=== PATIENT | female | born 1995 | race Caucasian/White ===

== ENCOUNTER 2017-06-19 00:45 | Emergency (ER) | payer MEDICAID, OTHER ==
[~2017-06-19] VITALS: Ht 162.6 cm; Wt 95.0 kg
[2017-06-19 01:31] VITALS: BP 119/80; PULSE 122; RESP 22; TEMP 100.3
--- NOTE | 2017-06-19 02:19 | RADRPT ---
EXAM DATE/TIME: 06/19/2017 01:47 [place] COMPARISON: No previous studies available for comparison. INDICATIONS : Chest pain. Shortness of breath. Patient states she was in the sun too long today. MEDICAL HISTORY : None. SURGICAL HISTORY : None. ENCOUNTER: Initial ACUITY: 1 day PAIN SCORE: 3/10 LOCATION: Bilateral chest FINDINGS: PA and lateral views of the chest demonstrate the lungs to be symmetrically aerated without evidence of mass, infiltrate or effusion. The cardiomediastinal contours are unremarkable. Osseous structure s are intact. CONCLUSION: No acute disease. Benny Alva MD on June 19, 2017 at 2:17 Board Certified Radiologist. This report was verified electronically.
[2017-06-19 02:53] LABS: BICARBONATE 25.4 MEQ/L (21.0-32.0); BLOOD UREA NITROGEN 9 MG/DL (7-18); CALCIUM 8.8 MG/DL (8.5-10.1); CHLORIDE 105 MEQ/L (98-107); CREATININE 0.73 MG/DL (0.50-1.00); GLOMERULAR FILTRATION RATE 98 ML/MIN (>89); GLUCOSE,RANDOM 110 MG/DL (74-106); SODIUM (NA) 137 MEQ/L (136-145)
[2017-06-19 02:56] LABS: AUTOMATED NEUTROPHIL # 10.4 TH/MM3 (1.8-7.7); BASOPHIL % 0.3 % (0.0-2.0); EOSINOPHIL % 0.2 % (0.0-4.0); HEMATOCRIT 33.2 % (35.0-46.0); LYMPH % 11.1 % (9.0-44.0); LYMPHOCYTE # 1.4 TH/MM3 (1.0-4.8); MEAN CELL VOLUME 82.7 FL (80.0-100.0); MEAN CORPUSCULAR HEMOGLOBIN 27.3 PG (27.0-34.0); MEAN PLATELET VOLUME 8.8 FL (7.0-11.0); MONO % 6.2 % (0.0-8.0); MONOCYTE # 0.8 TH/MM3 (0-0.9); NEUT % 82.2 % (16.0-70.0); PLATELET COUNT 265 TH/MM3 (150-450); RED BLOOD COUNT 4.02 MIL/MM3 (4.00-5.30); RED CELL DISTRIBUTION WIDTH 13.6 % (11.6-17.2); TROPONIN I LESS THAN 0.02 NG/ML (0.02-0.05); WHITE BLOOD COUNT 12.7 TH/MM3 (4.0-11.0)
--- NOTE | 2017-06-19 12:11 | EKG ---
Date Performed: 06/19/2017 Time Performed: 01:54:35 PTAGE: 22 years EKG: SINUS TACHYCARDIA ABNORMAL RHYTHM ECG NO PREVIOUS TRACING DOCTOR: Edin Epps Interpretating Date/Time 06/19/2017 12:11:17
== END 2017-06-19 05:46 | disposition left against medical advice (07) ==
LOC: NED 00:45
DX: R00.0 Tachycardia, unspecified (principal)
CPT/HCPCS: 71046; 80048; 82550; 84484; 85025; 93005; 99281